=== PATIENT | male | born 1970 | race Two or more races ===

== ENCOUNTER 2019-01-09 10:38 | Emergency (ER) | payer MEDICAID ==
[~2019-01-09] VITALS: Ht 165.1 cm; Wt 68.0 kg
[2019-01-09] MEDS ORDERED: SODIUM CHLORIDE 0.9% 1,000 ML IV ONE (12:46)
[2019-01-09] MEDS ORDERED: MORPHINE SULFATE 4 MG/ML CPJ (NOT FOR IM USE) IV ONE ×2 (13:00→17:00)
[2019-01-09] MEDS ORDERED: DEXAMETHASONE 10 MG/ML VIAL IV ONE (13:00)
[2019-01-09] MEDS ORDERED: CLINDAMYCIN 600 MG in DEXTROSE 5% WATER 50 ML IV ONE (13:00)
[2019-01-09] MEDS ORDERED: ONDANSETRON HCL 4MG/2ML INJ IV ONE (13:00)
[2019-01-09 13:35] LABS: HEMATOCRIT. 45.3 % (42.0-52.0); HEMOGLOBIN. 15.2 g/dL (14.0-18.0); MEAN CORPUSCULAR HEMOGLOBIN 26.7 pg (28.0-32.0); MEAN CORPUSCULAR VOLUME 79.7 fL (80.0-94.0); MEAN PLATELET VOLUME 8.6 fl (7.4-10.4); PLATELET 235 x1000/uL (130-400); RED BLOOD CELL COUNT 5.69 mill/uL (4.7-6.1)
[2019-01-09 13:41] LABS: CHLORIDE 105 mEq/L (98-107)
[2019-01-09 13:42] LABS: INR 1.1
[2019-01-09] MEDS ORDERED: CLINDAMYCIN 600MG PREMIX 50 ML IV NR (13:45)
[2019-01-09 14:49] LABS: PLATELET ESTIMATE NORMAL
[2019-01-09] MEDS ORDERED: IOHEXOL-300 100 ML BOTTLE ONE (15:07)
[2019-01-09 19:49] VITALS: BP 117/65
== END 2019-01-09 19:50 | disposition home or self-care (01) ==
LOC: ER 10:38
DX: J02.9 Acute pharyngitis, unspecified (principal); R50.9 Fever, unspecified; R13.10 Dysphagia, unspecified; Z88.6 Allergy status to analgesic agent; Z98.890 Other specified postprocedural states
CPT/HCPCS: 36415; 70491; 80053; 85025; 85610; 96365; 96375; 99284; J1100; J2270; J2405; J3490; J7030; Q9967; J7060